=== PATIENT | male | born 1990 | race Caucasian/White ===

== ENCOUNTER 2020-11-23 16:13 | Emergency (ER) | payer MEDICAID ==
[~2020-11-23] VITALS: Ht 177.8 cm; Wt 72.6 kg
[2020-11-23 16:15] VITALS: BP 125/72
== END 2020-11-23 17:57 | disposition home or self-care (01) ==
LOC: ER 16:13 → EDBD 16:13 → ER 17:57
DX: R07.89 Other chest pain (principal); F10.920 Alcohol use, unspecified with intoxication, uncomplicated; F17.210 Nicotine dependence, cigarettes, uncomplicated
CPT/HCPCS: 71250; 93005